=== PATIENT | female | born 2000 | race Caucasian/White ===

== ENCOUNTER 2020-01-23 12:07 | Emergency (ER) | payer OTHER ==
[~2020-01-23] VITALS: Ht 177.8 cm; Wt 77.2 kg
[2020-01-23] MEDS ORDERED: CEFDINIR 300 MG CAPSULE PO ONE (12:30)
[2020-01-23] MEDS ORDERED: PHENAZOPYRIDINE 200 MG TABLET PO ONE (12:30)
[2020-01-23] MEDS ORDERED: CEFDINIR 300 MG CAPSULE ONE (12:52)
[2020-01-23] MEDS ORDERED: PHENAZOPYRIDINE 200 MG TABLET ONE (12:52)
--- NOTE | 2020-01-23 12:56 | NUR ---
U/S at bedside. medicated per emar
[2020-01-23 12:57] LABS: BASOPHILS # (AUTO) 0.04 x10^3/uL (0-0.3); BASOPHILS % (AUTO) 0 % (0-1); EOSINOPHILS # (AUTO) 0.13 x10^3/uL (0-0.8); EOSINOPHILS % (AUTO) 1 % (1-7); LYMPHOCYTES % (AUTO) 17 % (22-44); MD NO; MEAN CORPUSCULAR HEMOGLOBIN 28.1 pg (27.0-34.8); MEAN CORPUSCULAR HGB CONC 32.8 g/dL (32.4-35.8); MEAN CORPUSCULAR VOLUME 85.5 fL (80-100); MEAN PLATELET VOLUME 8.5 fL (7.4-10.4); MONOCYTES % (AUTO) 8 % (2-9); NEUTROPHILS # (AUTO) 7.58 x10^3/uL (1.8-8.0); NEUTROPHILS % (AUTO) 74 % (42-75); PLATELET COUNT 217 x10^3/uL (130-400); RED BLOOD COUNT 4.52 x10^6/uL (3.82-5.3); RED CELL DISTRIBUTION WIDTH 14.1 % (9.6-15.2)
[2020-01-23] MEDS ORDERED: PLEASE ENTER ALLERGIES MC SCH (13:00)
[2020-01-23 13:07] LABS: ALBUMIN 3.9 g/dL (3.4-5.0); ANION GAP 9 mmol/L (5-15); CALCIUM 8.9 mg/dL (8.5-10.1); CHLORIDE 108 mmol/L (98-107); CREATININE 0.96 mg/dL (0.55-1.02)
[2020-01-23 13:10] LABS: ALANINE AMINOTRANSFERASE 25 U/L (12-78); ALKALINE PHOSPHATASE 63 U/L (45-117); BILIRUBIN,TOTAL 0.7 mg/dL (0.2-1.0)
--- NOTE | 2020-01-23 14:04 | NUR ---
Provider at bedside discussing results and POC
--- NOTE | 2020-01-23 14:08 | NUR ---
pt out of room to xray
[2020-01-23] MEDS ORDERED: ONDANSETRON ODT 8 MG ONE (14:22)
[2020-01-23] MEDS ORDERED: ONDANSETRON ODT 4 MG ONE (14:27)
--- NOTE | 2020-01-23 14:29 | NUR ---
Patient given discharge instructions and they have confirmed that they understand the instructions. pt verbalized understanding to fill perscipition medications and take as order. Patient ambulatory with steady gait. pt left ER in no distress.
[2020-01-23 14:30] VITALS: BP 151/74
[2020-01-23] MEDS ORDERED: ONDANSETRON ODT 4 MG PO ONE (14:30)
== END 2020-01-23 14:32 | disposition home or self-care (01) ==
LOC: ED 13:29
DX: N39.0 Urinary tract infection, site not specified (principal); R10.11 Right upper quadrant pain
CPT/HCPCS: 36415; 74018; 76700; 80053; 83690; 85025; 99285; Q0162